=== PATIENT | female | born 1960 | race Caucasian/White ===

== ENCOUNTER 2017-08-01 12:06 | Emergency (ER) | payer OTHER ==
[~2017-08-01] VITALS: Ht 170.2 cm; Wt 61.2 kg
[2017-08-01 12:07] VITALS: BP 129/77
[2017-08-01] MEDS ORDERED: HYDREA 500 MG500 M1 PO (12:25)
[2017-08-01] MEDS ORDERED: ASPIR 8181 M1 PO (12:25)
== END 2017-08-01 13:46 | disposition home or self-care (01) ==
LOC: ER 12:06
DX: S81.811A Laceration without foreign body, right lower leg, initial encounter (principal); W45.8XXA Other foreign body or object entering through skin, initial encounter; Y93.89 Activity, other specified; Y92.89 Other specified places as the place of occurrence of the external cause; Y99.8 Other external cause status